=== PATIENT | female | born 1975 | race African-American/Black ===

== ENCOUNTER 2025-08-11 21:33 | Emergency (ER) | payer BC ==
[2025-08-11 23:20] LABS: Hematocrit 36.0 % (36.0-47.0); Hemoglobin 11.1 g/dL (12.0-16.0); MDiff Complete? YES; Mean Corpuscular Hemoglobin 28.7 pg (27.0-31.0); Mean Corpuscular Volume 93.3 fl (78.0-98.0); Platelet Count 220 10x3/uL (130-400); Red Blood Cell (RBC) Count 3.86 mill/uL (4.20-5.40); White Blood Cell (WBC) Count 4.3 10x3/uL (4.8-10.8)
[2025-08-11 23:40] LABS: ALT (SGPT) 13 U/L (Less than 34); AST (SGOT) 26 U/L (11-34); Albumin 3.9 g/dL (3.1-4.5); Alkaline Phosphatase 57 U/L (40-110); Anion Gap 15 mmol/L (10-20); BUN (Urea Nitrogen) 17 mg/dL (9.8-20.1); Bilirubin, Total 0.2 mg/dL (0.3-1.2); Calc. Creatinine Clearance 0 mL/min (70-130); Calcium 8.6 mg/dL (7.8-10.44); Carbon Dioxide 23 mmol/L (22-29); Chloride 108 mmol/L (98-107); Globulin 2.7 g/dL (2.4-3.5); Glucose 93 mg/dL (70-105); Potassium 4.4 mmol/L (3.5-5.1); Sodium 142 mmol/L (136-145)
[2025-08-11 23:42] LABS: Troponin I 0.023 ng/mL (< 0.028)
[2025-08-12 00:15] LABS: Bacteria/HPF Rare-Few HPF (None Seen); CAUTI Indications for Culture Alt mental st,lethar; Glucose, Urine (Dipstick) Negative (Negative); Leukocyte Negative (Negative); Protein, Urine (Dipstick) Negative (Neg-Trace); RBC/HPF 0-3 HPF (0-3); Specific Gravity, Urine 1.015 (1.005-1.030); WBC/HPF 0-3 HPF (0-3)
[2025-08-12 00:16] LABS: Urine Culture Reflex No No
[2025-08-12 00:35] LABS: Troponin I Less than 0.010 ng/mL (< 0.028)
== END 2025-08-12 01:02 | disposition home or self-care (01) ==
LOC: MADERS 21:33
DX: R55 Syncope and collapse (principal); R42 Dizziness and giddiness; R29.700 NIHSS score 0; C50.919 Malignant neoplasm of unspecified site of unspecified female breast
CPT/HCPCS: 71045; 80053; 81001; 83880; 84484; 85025; 85379; 93005; J7030